=== PATIENT | male | born 1965 | race Caucasian/White ===

== ENCOUNTER 2016-08-27 13:38 | Inpatient (IN) | payer OTHER, SELFPAY ==
--- NOTE | ~2016-08-27 | CN ---
Consultation Report [place] [id number] [facility] [place]. [address] NAME: AKILAH BHATT : 61 STATUS : ADM IN PAT#: [id number] AGE: 51 ADM/REG DATE : 08/27/16 MR#: [id number] REPORT SERV DATE: 09/09/16 DICTATED BY: NILA PANDA DATE: 09/08/16 REPORT STATUS : Draft TRANSCRIBED BY: MODL DATE: 09/08/16 CONSULTATION DATE OF CONSULTATION: CONSULTATION REASON: Diabetic management. HISTORY OF PRESENT ILLNESS: This is a 51-year-old, male patient, who came to the hospital with short of breath and chest pain, was found to have multivessel disease and had gone through the cardiac bypass surgery urgently with Dr. Youngbolod on 09/06/2016. He had a cardiac bypass x5 with Dr. Youngblood and now the patient is transferred out of [facility]. Hospitalist Service was called for diabetic management. The patient has not been diagnosed with diabetes before in this hospitalization. However, his blood sugar has been elevated, was managed with standard sliding scale order. His A1c was found to be 6.3. He never been changed his diet or he never been recommended any lifestyle modification prior to this time. REVIEW OF SYSTEMS: He is having chest soreness from the operation site; however, there is no fever or chills. No diarrhea. No abdominal pain. Tolerating diabetic diet very well. All systems are reviewed and negative. PAST MEDICAL HISTORY: 1. Hypertension. 2. Morbid obesity. 3. Sleep apnea. The patient is using CPAP compliantly. 4. Kidney stones. 5. Hyperlipidemia. 6. Bilateral adrenal masses. 7. History of meningitis. 8. Depression. PAST SURGICAL HISTORY: 1. Left lower extremity split-thickness skin graft. 2. Left calf basal cell carcinoma resection. ALLERGIES: CODEINE. MEDICATION AT HOME: Prior to this admission, 1. Clonidine 0.1 mg every eight hours as needed. 2. Hydrochlorothiazide 25 mg once a day. 3. Prinivil 40 mg once a day. SOCIAL HISTORY: 1. He smoked two-pack a day up until this admission, which is consistent with 25 years. Consultation Report [place] [id number] [facility] [place]. [address] NAME: AKILAH BHATT : 61 STATUS : ADM IN PAT#: [id number] AGE: 51 ADM/REG DATE : 08/27/16 MR#: [id number] REPORT SERV DATE: 09/09/16 DICTATED BY: NILA PANDA DATE: 09/08/16 REPORT STATUS : Draft TRANSCRIBED BY: JIMENEZ DATE: 09/08/16 2. He seldomly drinks bourbon containing beverage. FAMILY HISTORY: Has a coronary artery disease positive and stroke and diabetes positive. PHYSICAL EXAMINATION: VITAL SIGNS: Blood pressure is 163/76, pulse is 75, temperature is 98.3, respiratory rate is 19, saturation 93% on 4 L of oxygen. GENERAL APPEARANCE: He is alert, awake. He is obese. HEENT: Pupils are equal, round, and reactive to light. Conjunctivae not anemic. LUNGS: Has a very shallow breath and a very decreased left base. CARDIOVASCULAR: Regular rhythm and rate. I do not hear the murmurs, rubs, and gallops. ABDOMEN: Bowel sounds present. No organomegaly appreciated. EXTREMITIES: No pitting edema. LABORATORY DATA: Showed sodium of 141, potassium 5.5, chloride 106, bicarb 19.8, BUN 29, creatinine 1.49. WBC 26.1, hemoglobin 14, platelet 161. ASSESSMENT/PLAN: 1. Status post coronary artery bypass graft postop day #2. 2. Presented to the hospital with a non-ST elevation myocardial infarction with heart failure symptoms. 3. Diabetes mellitus. A1c was 6.3. This is new diagnosis. We are going to obtain a diabetic education nurse and we are going to try to very restrict lifestyle modification. 4. Chronic kidney disease. 5. Hypertension. 6. Tobacco abuse. 7. We will transition to subcutaneous insulin today and we are going to get the diabetic education and lifestyle modification will be started. Had a long discussion regarding prognosis and nature of the disease and he voiced understanding. EKL/MODL Nila Panda M.D. / [id number]
--- NOTE | ~2016-08-27 | CN ---
Consultation Report [facility] [address] [place]. [address] NAME: AKILAH BHATT : 61 STATUS : ADM IN PAT#: [id number] AGE: 51 ADM/REG DATE : 08/27/16 MR#: [id number] REPORT SERV DATE: 08/30/16 DICTATED BY: SILVANO ENCARNACION DATE: 08/30/16 REPORT STATUS : Draft TRANSCRIBED BY: MODL DATE: 08/30/16 CONSULTATION NOTE DATE OF CONSULTATION: 08/30/2016 REASON FOR CONSULTATION: Three-vessel flow-limiting coronary artery disease in the context of recent non-ST elevation myocardial infarction, consideration for urgent coronary artery bypass grafting. CHIEF COMPLAINT: "I woke up and could not get my breath Monday morning." HISTORY OF PRESENT ILLNESS: This is a 51-year-old morbidly obese gentleman, who is a smoker of up to two packs per day for the last 25 years. He has obstructive sleep apnea and uses CPAP. He reports that over the past year or longer he has had exertional chest pain and pressure that resolves with rest. 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 He reports that early Monday morning he awakened feeling unable to get his breath. He went to the emergency department at [facility], and there had abnormal EKG, elevated troponin I, and elevated B type natriuretic peptide. Chest x-ray was remarkable for pulmonary edema. He was transferred to [facility] where he was hospitalized under the care of Dr. Becerril. His cardiac workup culminated in coronary arteriogram today that demonstrated severe three- vessel flow-limiting coronary artery disease. Echocardiography during this admission showed normal left ventricular function with ejection fraction 55%, and no significant valvulopathy, although he does have aortic sclerosis. We were asked to see for possible coronary artery bypass grafting. This was discussed with the patient and his family today. PRIOR MEDICAL HISTORY: 1. Significant for obstructive sleep apnea, wearing CPAP. 2. Hypertension. 3. Hyperlipidemia. 4. COPD. 5. Tobacco abuse. 6. Nephrolithiasis. 7. Basal cell carcinoma of the left lower extremity with resection. PRIOR SURGICAL HISTORY: Significant for extraction of renal stones, excision of left lower extremity basal cell carcinoma, and left lower extremity split-thickness skin graft. ALLERGIES: CODEINE, WHICH CAUSES HIM TO HAVE PRURITUS. MEDICATIONS AT HOME: Include clonidine 0.1 mg p.o. q.8 hours p.r.n., hydrochlorothiazide 25 mg p.o. daily, lisinopril 40 mg p.o. daily, and upon admission, he was placed on Plavix 75 mg p.o. daily, last dose this morning. Consultation Report [facility] [address] [place]. [address] NAME: AKILAH BHATT : 61 STATUS : ADM IN PAT#: [id number] AGE: 51 ADM/REG DATE : 08/27/16 MR#: [id number] REPORT SERV DATE: 08/30/16 DICTATED BY: SILVANO ENCARNACION DATE: 08/30/16 REPORT STATUS : Draft TRANSCRIBED BY: JIMENEZ DATE: 08/30/16 FAMILY HISTORY: Significant for mother and father both with coronary disease and coronary artery bypass grafting, other family history includes hypertension, stroke, diabetes, cancer, arthritis, and depression. SOCIAL HISTORY: He is a smoker of up to two packs per day for 25 years, and drinks Dillon on a weekly basis. 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 REVIEW OF SYSTEMS: GENERAL: Negative for any recent weight change, fevers, chills, night sweats, or malaise. ENT: Positive for poor dentition and broken teeth. Wears glasses. Denies any cataracts or glaucoma. Denies any difficulty with hearing. RESPIRATORY: Positive for shortness of breath, PAIGE, use of CPAP, prior bronchitis, and prior mechanical ventilation two years ago with his stone extraction. CV: Positive for chest pain, shortness of breath, nocturnal chest pain, and pain at rest. Negative for paroxysmal nocturnal dyspnea other than the recent episode. Negative for syncope or near syncope. Negative for orthopnea. Negative for diaphoresis, nausea, or vomiting. GI: Positive for reflux and hiatal hernia. : Positive for the kidney stones. MUSCULOSKELETAL: Negative. HEME/ONC: Negative for free bleeding or easy bruising. Negative for blood clots. Positive for prior basal cell carcinoma of the leg, status post excision with split-thickness skin graft in March of last year. ENDOCRINE: Negative for diabetes or thyroid problems. PHYSICAL EXAMINATION: GENERAL: He is a pleasant, obese white male, in no acute distress, although he appears mildly short of breath at rest on 4 liters nasal cannula. His height is 182.88 cm and weight 144.49 kg giving him BMI of 43.2 kg/m2, which is class 3 obesity. VITAL SIGNS: Blood pressure 137/86; temperature 98.9; pulse of 64; and respirations 16, regular and unlabored. HEENT: Normocephalic and atraumatic. Pupils are equal, round, reactive to light and accommodation. Sclerae are clear. Conjunctivae are pink. Oral and buccal mucosa are pink and moist. No lesions or masses, with multiple broken teeth at the gumline. Mallampati class IV airway. NECK: Supple. No restricted range of motion. No carotid bruits. No jugular venous distention. CHEST: He has few scattered expiratory wheezes. No use of accessory muscles. No chest wall tenderness. No deformity. BREASTS: Not examined. CV: Regular rate and rhythm with aortic systolic murmur. He has palpable and symmetric central and peripheral pulses. No clubbing. No cyanosis. No edema. ABDOMEN: Large, obese, nontender with normoactive bowel sounds. No hepatosplenomegaly. /RECTAL: Declined. Consultation Report [address] [place]. [address] NAME: AKILAH BHATT : 61 STATUS : ADM IN [facility]#: [id number] AGE: 51 ADM/REG DATE : 08/27/16 MR#: [id number] REPORT SERV DATE: 08/30/16 DICTATED BY: SILVANO ENCARNACION DATE: 08/30/16 REPORT STATUS : Draft TRANSCRIBED BY: JIMENEZ DATE: 08/30/16 MUSCULOSKELETAL: No kyphoscoliosis. No asymmetry. NEUROLOGIC: He is alert and oriented. Speech is clear and fluent. No focal neural neurologic deficits. SKIN, HAIR, AND NAILS: He has coarse graying hair and a sanchez, has an approximately 1 cm warty excrescence in the left foot plantar surface. His lower extremity nails are thickened. DATA: His coronary arteriogram, which I reviewed today showing severe three-vessel flow- limiting disease. His EKG shows normal sinus rhythm with incomplete right bundle-branch block and ST-T wave abnormality. LABORATORY DATA: His electrolyte profile; sodium 146, potassium 3.3, chloride 110, CO2 of 25, BUN 8, creatinine 1.19, and nonfasting glucose is 168. His lipid profile; cholesterol is 166, HDL is 50, LDL is 92, and triglycerides 121. His CBC shows WBCs 11.6, hemoglobin 15.2 g, hematocrit 45%, and platelets 171,000. ABGs show pH 7.41, PaCO2 of 41, PaO2 of 69, and bicarb 25.4. Chest x-ray shows increased interstitial markings consistent with edema. IMPRESSION: 1. Three-vessel flow-limiting coronary artery disease. 2. Recent non-ST elevation myocardial infarction. 3. Morbid obesity. 4. Obstructive sleep apnea. 5. Pulmonary edema. 6. Hypertension. 7. Hyperlipidemia. 8. Chronic obstructive pulmonary disease. 9. Tobacco abuse. 10.Recent clopidogrel use. PLAN: We discussed with the patient and his family today possible coronary artery bypass grafting, indications, benefits, and risks. Serious risks include but are not limited to, things such as bleeding, need for blood or blood product transfusion and their attendant risks, damage to the kidneys including kidney failure and dialysis, damage to the liver or the lungs, infection including deep sternal infection, mediastinitis, heart attack, stroke, abnormal heart rhythm, and even . Using Society of Thor[employer] Surgeons database for risk prediction, risk of was calculated at 2.055%, morbidity or mortality 24.979% for coronary artery bypass grafting. This was shared with the patient and his family today. He indicates his understanding and wishes to proceed. Given his recent acute heart failure, he will benefit from continued "tuning" of his pulmonary system and he is currently being seen by Pulmonology and is on steroids. Given his recent use of Plavix, will require time for platelet recovery. In the interim, we will obtain carotid ultrasound as well as bedside spirometry. We will discuss with Pulmonology, would anticipate coronary artery bypass grafting possibly earlier next week. Consultation Report [place] [id number] [facility] [place]. [address] NAME: AKILAH BHATT : 61 STATUS : ADM IN PAT#: [id number] AGE: 51 ADM/REG DATE : 08/27/16 MR#: [id number] REPORT SERV DATE: 08/30/16 DICTATED BY: SILVANO ENCARNACION DATE: 08/30/16 REPORT STATUS : Draft TRANSCRIBED BY: JIMENEZ DATE: 08/30/16 We appreciate the opportunity to participate in this gentleman's care. MSL/MODL Silvano Encarnacion N.P. / [id number] CC: Michael Becerril III, M.D., [facility], [facility]
--- NOTE | ~2016-08-27 | OP ---
Record Of [place] [id number] [place]. [address] NAME: AKILAH BHATT : 61 STATUS : ADM IN PAT#: [id number] AGE: 51 ADM/REG DATE : 08/27/16 MR#: [id number] REPORT SERV DATE: 09/07/16 DICTATED BY: EH YOUNGBLOOD DATE: 09/06/16 REPORT STATUS : Draft TRANSCRIBED BY: MODL DATE: 09/06/16 DATE OF PROCEDURE: 09/06/2016 PREOPERATIVE DIAGNOSES: 1. Coronary artery disease with unstable angina. 2. Non-ST elevation myocardial infarction. 3. Morbid obesity (body mass index greater than 40). 4. Hypertension. 5. Hyperlipidemia. 6. Obstructive sleep apnea. 7. Depression. 8. Tobacco abuse. POSTOPERATIVE DIAGNOSES: 1. Coronary artery disease with unstable angina. 2. Non-ST elevation myocardial infarction. 3. Morbid obesity (body mass index greater than 40). 4. Hypertension. 5. Hyperlipidemia. 6. Obstructive sleep apnea. 7. Depression. 8. Tobacco abuse. PROCEDURES PERFORMED: 1. Urgent coronary artery bypass grafting x5, left internal mammary artery placed to left anterior descending, reverse saphenous vein graft placed to the diagonal #2, reverse saphenous vein graft placed to the second obtuse marginal. Reverse saphenous vein graft sequenced to the distal right coronary artery and posterior descending artery. 2. Endoscopic vein harvest of the saphenous vein from the right leg and left lower leg. 3. Transesophageal echocardiography. SURGEON: Eh Youngblood M.D. ASSISTANTS: Nathan Mcnally, Italo Azul, and Linsey James. ANESTHESIA: General with Dr. Victor. AWAKE OVERNIGHT COUNSELOR: Michael Becerril M.D., [facility], [facility] INDICATIONS: This is a 51-year-old male smoker with hypertension who was transferred from [facility] for evaluation of acute non-ST elevation MO. He has a history of obstructive sleep apnea with chest pain. He was admitted, medically stabilized, and underwent a cardiac catheterization demonstrating significant three-vessel coronary artery disease. We were asked to see the patient for possible urgent revascularization. On evaluation either at the outlying hospital or admission here, the patient was given a loading dose of Plavix. Because the patient was stable after cardiac catheterization Record Of [place] [address] [place]. [address] NAME: AKILAH BHATT : 61 STATUS : ADM IN PAT#: [id number] AGE: 51 ADM/REG DATE : 08/27/16 MR#: [id number] REPORT SERV DATE: 09/07/16 DICTATED BY: EH YOUNGBLOOD DATE: 09/06/16 REPORT STATUS : Draft TRANSCRIBED BY: MODL DATE: 09/06/16 without having chest pain, it was elected to defer coronary bypass grafting to after metabolism of the Plavix and new platelets. We discussed possible coronary artery bypass grafting with the patient and after lengthy discussion of the operation, its indications and risks, he and his family wished to proceed. STS predicted mortality of 2%, morbidity mortality of 25%. These were shared with the family. FINDINGS AT OPERATION: 1. Cross-clamp time of 84 minutes, total pump time of 96 minutes. 2. The LAD was a 2 mm heavily diseased vessel. A 3 mm GUPTA was anastomosed to it with good runoff. 3. The second diagonal was 2 mm and heavily diseased. A 4 mm RSVG was anastomosed to it with good runoff. Unfortunately, this vein graft was not long enough to reach the ascending aorta. Therefore, it was piggybacked into the side of vein graft going to the obtuse marginal vessel. 4. The second obtuse marginal vessel was 2 mm and heavily diseased. A 4 mm RSVG was anastomosed to it with good runoff. 5. The distal right coronary artery is 2.5 mm and heavily diseased. A 4 mm RSVG was anastomosed to it in a [id number]-np-yrdi fashion with good runoff. 6. The posterior descending artery was 2 mm and heavily diseased. The same 4 mm RSVG was anastomosed to it into fbvt-[id number]-[id number] fashion with good runoff. 7. The vein quality from the lower legs was good. Unfortunately, the right thigh saphenous vein was sclerotic and not usable as graft material. All grafts did have good Doppler signal at the end of the case. 8. Transesophageal echocardiography demonstrated good ventricular function. There was mild mitral insufficiency and mild aortic insufficiency. PATHOLOGIC SPECIMENS: None. DESCRIPTION OF PROCEDURE: The patient was brought to the operating suite where general anesthesia was induced and airway secured with an endotracheal tube. Lines were secured by Anesthesia and Hollis catheter was placed. The patient's chest, abdomen, groin, and legs were prepped with Hibiclens and ChloraPrep and draped with Ioban sterile sheets. ADRIEN probe was placed by Dr. Victor and examination carried out in my attendance. The saphenous vein was harvested from the right leg in its entirety and the left lower leg below the knee. First incision was made at the medial aspect of the right knee, measured 2 cm. This was carried through subcutaneous tissue and saphenous vein was identified. The side branches were identified, ligated, and divided with cautery. Once adequate length of vein had been dissected, a counter incision was made up in the groin and in the lower leg. The vein quality from the vessel below the level of the knee was good. Unfortunately in the thigh, the vein became sclerotic and was not usable for graft material. Therefore, a similar cut down was made in the left greater saphenous vein in the left knee and this dissection was carried distally using endoscopic technique. A counter incision was made in the lower leg and this vein was ligated and brought out through the knee incision. The vein quality from the left leg was good. The leg wounds were then made hemostatic and closed in layers with absorbable suture and skin closed subcuticular fashion. Record Of Operation [facility] [address] [facility] [place]. [address] NAME: AKILAH BHATT : 61 STATUS : ADM IN [facility]#: [id number] AGE: 51 ADM/REG DATE : 08/27/16 MR#: [id number] REPORT SERV DATE: 09/07/16 DICTATED BY: EH YOUNGBLOOD DATE: 09/06/16 REPORT STATUS : Draft TRANSCRIBED BY: MODLillian DATE: 09/06/16 Then, a midline sternal incision was made and the sternum opened with a saw. The left hemithorax was elevated. The endothoracic fascia was incised. The side branches of the ALEX were clipped and divided. Once the ALEX was completely dissected, the patient was anticoagulated with heparin and chest tube placed in the left pleural cavity. The ALEX was clipped and divided distally. There was good flow through the ALEX and its pedicle was infiltrated with papaverine. Then, the Mark retractor was placed in the pericardium over the innominate vein and diaphragm where it was T'd and tacked to the side of the chest wall. Cannulation pursestring sutures were placed and cannulation was carried out in a routine manner. A retrograde cardioplegia cannula was placed in the coronary sinus. When all was in readiness, the patient was placed on cardiopulmonary bypass. The distal targets were marked out on the heart as described in the findings. This patient had a very large heart. Then, a heart support was placed. The aorta was crossclamped and an initial dose of cold blood cardioplegia solution was given in a combination of antegrade and retrograde fashion, and then in a retrograde manner following proximal anastomoses. Following the first dose of cardioplegia, the heart was positioned for the diagonal graft. Arteriotomy was made and the vein graft was trimmed and anastomosed to it with 7-0 Prolene. Unfortunately, the segment of vein graft was not long enough to reach the ascending aorta. We then positioned the heart for the posterior descending artery graft. Arteriotomy was made and the vein graft was trimmed and anastomosed it with 7-0 Prolene. The vein graft was measured back to the distal right coronary artery where a second arteriotomy was made. The vein was opened correspondingly and anastomosed to the distal RCA with a running suture of 7 0 Prolene in a vzmb-dc-rjwi fashion. The vein graft was then measured to the ascending aorta where the sequential vein graft was anastomosed to a 5 mm punch aortotomy with 6-0 Prolene. Another dose of cardioplegia was given. We then positioned the heart for the obtuse marginal graft. Another arteriotomy was made and the vein graft was trimmed and anastomosed to it with 7-0 Prolene. The vein graft was measured to the left side of the ascending aorta where it was divided and anastomosed to a 5 mm punch aortotomy with 6-0 Prolene. Then, the proximal end of the diagonal vein graft was anastomosed to the side of the vein graft going to the obtuse marginal vessel. Venotomy was made and an end-to-side venovenous anastomosis was constructed with 7-0 Prolene. Another dose of cardioplegia was given and warming was begun. We then positioned the heart for the LAD graft. Arteriotomy was made in the mid LAD. The ALEX was brought out the left chest through a notch in the pericardium over the pulmonary artery. The ALEX was opened and anastomosed to the LAD with running suture of 8-0 Prolene. The endothoracic fascia was tacked to the epicardium. The patient was placed in Trendelenburg and final dose of warm blood cardioplegia was given in a retrograde fashion. Ventricular and atrial pacing wires were placed. Following the last dose of cardioplegia and de-airing the aorta, the aortic cross clamp was removed where the distal and proximal anastomoses were inspected and made hemostatic. Doppler demonstrated good flow through the grafts. Ventilation was begun. The heart was paced in AV sequential fashion and later this was changed to atrial pacing only at a rate of Record Of Operation [facility] [address] [place]. [address] NAME: AKILAH BHATT : 61 STATUS : ADM IN PAT#: [id number] AGE: 51 ADM/REG DATE : 08/27/16 MR#: [id number] REPORT SERV DATE: 09/07/16 DICTATED BY: EH YOUNGBLOOD DATE: 09/06/16 REPORT STATUS : Draft TRANSCRIBED BY: JIMENEZ DATE: 09/06/16 80. When deairing was completed, the heart was allowed to fill and eject. The patient was taken out of Trendelenburg. The ascending aortic vent was removed and these pursestring sutures tied and reinforced. The patient was weaned from cardiopulmonary bypass with minimal inotropic support. The venous cannula was removed and these pursestring sutures tied. ADRIEN examination demonstrated continued mild mitral valve insufficiency and mild aortic insufficiency. Protamine was administered by Anesthesia, and following a period of hemodynamic stability, the aortic cannula was removed and these pursestring sutures tied and reinforced. The patient continued to do well and chest irrigated copiously with saline. Meticulous hemostasis was obtained. Hemasorb was placed along the cut edge of the sternum. Once hemostasis was assured, the pericardium was draped over the anterior surface of the heart and tacked into position. Doppler demonstrated good flow through the grafts following protamine administration. Then, chest tubes were placed and sternum reapproximated with eight sternal wires. The clavipectoral fascia and linea alba closed with #1 Stratafix. The subcutaneous tissue was closed and skin closed in subcuticular fashion. The patient tolerated the procedure well. There were no complications. Sponge and needle counts were correct. DISPOSITION: The patient was left intubated, sedated, and transported to the intensive care unit in stable condition. JANEEN/JIMENEZ Eh Youngblood M.D. / [id number] CC: Michael Becerril III, M.D., [facility], [facility]
--- NOTE | ~2016-08-27 | DS ---
Discharge Summary [facility] [address] [place]. [address] NAME: AKILAH BHATT : 61 STATUS : DIS IN PAT#: [id number] AGE: 51 ADM/REG DATE : 08/27/16 MR#: [id number] REPORT SERV DATE: 09/22/16 DICTATED BY: JAY BECERRIL III DATE: 09/21/16 REPORT STATUS : Draft TRANSCRIBED BY: JIMENEZ DATE: 09/21/16 Data Collection from hospitalization DISCHARGE DIAGNOSES: 1. Unstable angina pectoris - acute coronary syndrome. 2. Three-vessel coronary artery disease. 3. Acute diastolic heart failure. 4. Chronic obstructive pulmonary disease. 5. Hypertension. 6. Hyperlipidemia. 7. Morbid obesity. 8. Acute nyv-YH-exfnalzgk myocardial infarction. 9. Hyperlipoproteinemia. 10.Obstructive sleep apnea. 11.Chronic obstructive pulmonary disease. 12.Nephrolithiasis. 13.Bilateral adrenal masses. 14.History of meningitis. 15.Depression. 16.Tobacco use. CONSULTATIONS: 1. Nkechi Salmon MD. 2. Silvano Gross N.P. 3. Laura Chatterjee M.D. PROCEDURES PERFORMED: 1. Cardiac catheterization on 08/30/2016. 2. Urgent coronary artery bypass grafting x5 with left internal mammary artery to the left anterior descending artery, reverse saphenous vein graft placed to the diagonal #2, reverse saphenous vein graft placed to the second obtuse marginal, reverse saphenous vein graft sequenced to the distal right coronary artery and posterior descending artery; endoscopic vein harvest of the saphenous vein from the right leg and left lower leg; and transesophageal echocardiography on 09/06/2016. 3. Carotid blood flow study on 08/31/2016. 4. Vein mapping of the bilateral lower extremities on 08/31/2016. 5. CTA of the chest on 09/01/2016. 6. Pulmonary function study on 09/03/2016. MEDICATIONS: Aspirin 81 mg daily, Lipitor 40 mg at bedtime, Bumex 1 mg daily, Plavix 75 mg daily, Neurontin 300 mg three times a day, Prinivil 10 mg daily, Toprol-XL 100 mg daily, Dulera two puffs via inhaler twice a day, Habitrol 21 mg topically daily, Nitrostat 0.4 mg sublingually as needed, Percocet one tablet every four hours as needed, and K-Dur 20 mEq daily. CONDITION AT DISCHARGE: Stable. DISPOSITION: The patient was discharged home on a low-sodium, low-cholesterol, cardiac diet Discharge Summary [place] [address] [facility] [place]. [address] NAME: AKILAH BHATT : 61 STATUS : DIS IN PAT#: [id number] AGE: 51 ADM/REG DATE : 08/27/16 MR#: [id number] REPORT SERV DATE: 09/22/16 DICTATED BY: JAY BECERRIL III DATE: 09/21/16 REPORT STATUS : Draft TRANSCRIBED BY: JIMENEZ DATE: 09/21/16 with activities as instructed. He would follow up with Dr. Nkechi Salmon one to two months following discharge. He would follow up with Silvano Gross on 11/10/2016. He would follow up with Dr. Jay Becerril on 10/12/2016. HOSPITAL COURSE: This is a 51-year-old man who was transferred from [facility] for evaluation and treatment of acute kao-OV-zelwujmzp myocardial infarction and congestive heart failure. The patient has a history of chronic obstructive pulmonary disease and obstructive sleep apnea. He had been in his usual state of health until approximately two years prior to this admission when he had the onset of dull substernal chest pain radiating to the shoulders. Chest pain had lasted a few hours in duration. Chest pains were accompanied by dyspnea and diaphoresis. The patient denied any nausea or vomiting. Chest pain had been precipitated by exertion and emotional upset, that had been relieved with rest and wearing oxygen. About six months prior to this admission, the patient noticed an increase in the frequency and intensity of his chest pain. He denied any change in the duration of his chest pain. The patient did well until the day of admission. At that time, he had developed the acute onset of dyspnea. He was subsequently seen in the [facility] Emergency Room. His blood pressure was 172/97. A 12-lead electrocardiogram demonstrated sinus rhythm with left ventricular hypertrophy accompanied by repolarization abnormalities. Potassium was 3.7. Troponin I level was 0.07. BNP was 99.8. Chest x-ray showed cardiomegaly and increased pulmonary vascular markings. A CTA of the chest demonstrated no evidence of pulmonary embolus. There were findings suggestive of pulmonary vascular congestion. He was treated with aspirin and heparin followed by an infusion. He also had nitroglycerin paste and furosemide given. He was transferred here and admitted for further evaluation and treatment. Upon admission, the patient was felt to have unstable angina pectoris - acute coronary syndrome complicated by congestive heart failure and nonspecific systolic murmur. The following day, he had no chest pain. His dyspnea had improved. He had no palpitations. He was in a sinus rhythm. He had trace pedal edema. On 08/29/2016, he had some dyspnea. He had no chest pain or palpitations. He was in a sinus rhythm. It was felt that he would need to undergo cardiac catheterization and possible percutaneous coronary intervention. 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 He tolerated this well, and there were no complications. He had been by Dr. Salmon regarding his shortness of breath. The patient does have cigarette-nicotine dependence. He was felt to have an acute exacerbation of his chronic obstructive pulmonary disease. The patient was encouraged to stop smoking. Dulera was going to be started. We would also begin DuoNeb therapy and prednisone. The patient was seen postoperatively by Silvano Gross. Cardiac workup had resulted in a coronary arteriogram that demonstrated severe three-vessel flow-limiting coronary artery disease. Echocardiography during this admission showed normal left ventricular function with ejection fraction 55% and no significant valvulopathy, although he does have aortic sclerosis. It was felt that he would need to undergo coronary artery bypass grafting. Given his use of recent Plavix, he would require time for platelet recovery. In the interim, we would obtain a carotid ultrasound as well as bedside spirometry. On 08/31/2016, a carotid blood flow study was performed as well as vein mapping of the bilateral lower extremities. He seemed to be doing well. DuoNebs were continued. He was encouraged to use CPAP. He was in a sinus rhythm. His carotid ultrasound showed no significant disease. The next day, there have been no issues Discharge Summary [address] [place]. [address] NAME: AKILAH BHATT : 61 STATUS : DIS IN PAT#: [id number] AGE: 51 ADM/REG DATE : 08/27/16 MR#: [id number] REPORT SERV DATE: 09/22/16 DICTATED BY: JAY BECERRIL III DATE: 09/21/16 REPORT STATUS : Draft TRANSCRIBED BY: JIMENEZ DATE: 09/21/16 overnight. A CTA of the chest was performed. His dyspnea was much improved. He had no chest pain or palpitations. He was in a sinus rhythm. Bumetanide was decreased. KCl was continued. On 09/02/2016, the CTA had shown mild interstitial pulmonary edema and bilateral adrenal adenomas. Aldosterone level was going to be checked. The patient complained of mouth/tongue white plaque. Plans were being made to proceed with surgical intervention. Pulmonary function studies were performed. He remained in a sinus rhythm. He has had some myoclonus and this improved. Bumetanide and KCl were stopped. He denied chest pain. On 09/06/2016, he was taken to the operating room where he underwent the above-mentioned procedure. He tolerated this well, and there were no complications. On postop day #1, he complained of some incisional pain. We encouraged him to use pulmonary toilet. He had been extubated. He did have chest soreness. He had no palpitations or dyspnea. Metoprolol was increased. The next day, he began to ambulate in the halls. Chest tubes were removed. His incisions looked okay. We encouraged him to perform deep cough and incentive spirometry. He was encouraged to ambulate. He was seen by Dr. Laura Chatterjee regarding diabetes management. The patient had not been diagnosed with diabetes before this hospitalization. His hemoglobin level was found to be 6.3. His blood sugars had been elevated. He had been managed with standard sliding scale. He had smoked two packs a day up until this admission. It was felt that he had a new diagnosis of diabetes mellitus. He was going to undergo diabetes education. Lifestyle modifications were discussed. He would be transitioned to subcutaneous insulin later in the day. The next day, he had some chest soreness. There was no palpitations or dyspnea. He remained in a sinus rhythm. Lisinopril was being given. Discharge planning was performed. He underwent diabetes education. On 09/10/2016, he continued to do well. O2 saturation ranged between 94% and 96% on room air. Discharge instructions were given. Due to his improved and stable condition, he was discharged home with the above-stated instructions. Information collected by: Kanika Cosme I submit the above information as my discharge summary. DILMA/JIMENEZ Jay Becerril III, M.D., [facility], [facility] / [id number] CC: Jay Becerril III, M.D., [facility], [facility] Silvano Gross N.P.
--- NOTE | ~2016-08-27 | PUL ---
[place] [id number] [place]. [address] NAME: AKILAH BHATT : 61 STATUS : ADM IN PAT#: [id number] AGE: 51 ADM/REG DATE : 08/27/16 MR#: [id number] REPORT SERV DATE: 09/04/16 DICTATED BY: MERY HAIR DATE: 09/03/16 REPORT STATUS : Draft TRANSCRIBED BY: MODL DATE: 09/03/16 PULMONARY FUNCTION TEST RESULTS: 1. FEV1 of 3.41 L or 83% predicted. 2. Forced vital capacity of 3.73 L or 70% predicted. 3. FEV1/FVC of 91%. INTERPRETATION: 1. Normal airflow. 2. Decreased forced vital capacity may indicate neuromuscular weakness, poor effort, or restriction. Consider lung volume testing if clinically indicated. LORETO/JIMENEZ Mery Hair M.D. / [id number] CC: Michael Becerril III, M.D., [facility], [facility]
--- NOTE | ~2016-08-27 | HP ---
History And Physical [place] [id number] [facility] [place]. [address] NAME: AKILAH BHATT : 61 STATUS : ADM IN PAT#: [id number] AGE: 51 ADM/REG DATE : 08/27/16 MR#: [id number] REPORT SERV DATE: 08/27/16 DICTATED BY: JAY CAZARES III DATE: 08/27/16 REPORT STATUS : Draft TRANSCRIBED BY: JIMENEZ DATE: 08/27/16 DATE OF ADMISSION: 08/27/2016 HISTORY OF PRESENT ILLNESS: Mr. Akilah Bhatt is a 51-year-old white male, transferred from [facility] for evaluation and treatment of an acute dju-BI-hvfalzp elevation myocardial infarction and congestive heart failure. The patient has a history of chronic obstructive pulmonary disease and obstructive sleep apnea. The patient had been in his usual state of health until approximately two years prior to this admission. At that time, the patient had the onset of dull substernal chest pains radiating to his shoulders. The patient's chest pains have lasted up to two hours in duration. The patient's chest pains have been accompanied by dyspnea and diaphoresis. The patient denied any associated nausea or vomiting. The patient's chest pains have been precipitated by exertion and emotional upset. The patient denied relation to oral intake, positional change, and inspiration. The patient's chest pains have been relieved by rest and wearing oxygen. The patient denied relief with antacids. The patient denied trying sublingual nitroglycerin or heating pad. The patient has no history of migraine headaches or symptoms suggestive of Raynaud's phenomenon. The patient has occasionally noted chest pain at rest. The patient has been woken from sleep by chest pain. Approximately six months prior to this admission, the patient noted an increase in the frequency and intensity of his chest pains. The patient denied any change in the duration of his chest pain. The patient did well until the day of admission. At that time, the patient noted the acute onset of dyspnea. The patient was subsequently seen in the [facility]. The patient's blood pressure was 172/97 mmHg. A 12-lead electrocardiogram demonstrated sinus rhythm with left ventricular hypertrophy accompanied by repolarization abnormalities. The patient's potassium was 3.0, troponin I level was 0.07, and B-type natriuretic peptide level was 99.8 pg/mL. A chest radiograph demonstrated cardiomegaly and increased pulmonary vascular markings. A CTA of the chest demonstrated no evidence of a pulmonary embolus. There were findings suggestive of pulmonary vascular congestion. The patient was treated with aspirin 324 mg p.o., heparin 5000 units intravenously followed by an infusion, 2% Nitro paste, and furosemide 20 mg intravenously. The patient was subsequently transferred for further evaluation and therapy. The patient complained of dyspnea on exertion at less than 15 yards, bilateral pedal edema and occasional palpitations. The patient has been told that he has a cardiac murmur. The patient denied sacral edema, syncope, hip claudication, and lower extremity claudication. The patient has no history of rheumatic fever. The patient's documented coronary artery disease risk factors include family history, obesity, hyperlipoproteinemia, hypertension, and tobacco use. PAST MEDICAL HISTORY: 1. Morbid obesity. 2. Hyperlipoproteinemia. 3. Hypertension. 4. Obstructive sleep apnea, CPAP compliant. 5. Chronic obstructive pulmonary disease. 6. Nephrolithiasis with a right renal calculus. History And Physical [address] [address] NAME: AKILAH BHATT : 61 STATUS : ADM IN [facility]#: [id number] AGE: 51 ADM/REG DATE : 08/27/16 MR#: [id number] REPORT SERV DATE: 08/27/16 DICTATED BY: JAY CAZARES III DATE: 08/27/16 REPORT STATUS : Draft TRANSCRIBED BY: JIMENEZ DATE: 08/27/16 7. Bilateral adrenal masses. 8. History of meningitis. 9. Depression. OPERATIVE PROCEDURES: 1. Status post left lower extremity split thickness skin graft. 2. Status post resection of a left calf basal cell carcinoma. ALLERGIES: CODEINE. MEDICATIONS: 1. Clonidine 0.1 mg p.o. q.8 hours, p.r.n. (noncompliant). 2. Hydrochlorothiazide 25 mg p.o. daily (noncompliant). 3. Lisinopril 40 mg p.o. daily (noncompliant). FAMILY HISTORY: Positive for myocardial infarction, hypertension, stroke, diabetes mellitus, cancer, arthritis, and depression. Negative for seizures, kidney disease, liver disease, and anemia. SOCIAL HISTORY: The patient smokes approximately two packs per day and has done so for the last 25 years. The patient drinks a bourbon-containing beverage approximately one time per week. PHYSICAL EXAMINATION: GENERAL: Physical examination demonstrated an alert, morbidly obese, older white male, in mild respiratory distress. VITAL SIGNS: Demonstrated a temperature of 97.0, respiratory rate of 20 breaths per minute, and a blood pressure of 158/96 mmHg with a heart rate of 70 beats per minute. SKIN: Warm and dry. There was a healing left calf surgical incision. NECK: Supple and nontender. There was decreased range of motion. There was no appreciable lymphadenopathy or thyromegaly. There was no jugular venous distention at 90 degrees. There were no carotid bruits. BACK: Examination of the back demonstrated no spinal or costovertebral angle tenderness. CHEST: Examination of the chest demonstrated that it was clear to auscultation. There were no crackles, rhonchi, wheezes, or pleural rubs. There was symmetrical expansion of the chest. There was no use of accessary muscles for respiration. CARDIAC: Demonstrated a nonpalpable apical impulse. There was a regular rhythm and rate with a grade III/ holosystolic murmur heard at the right upper sternal border, left sternal border, and apex. There was no appreciable inspiratory augmentation of the systolic murmur. There was no increase in the intensity of the systolic murmur with Valsalva maneuver. There was no diastolic murmur, rub, gallop, or mid systolic click. There were no thrills or heaves. There was no hepatojugular reflux. ABDOMEN: Examination of the abdomen demonstrated that it was obese, soft, and markedly protuberant. There was no appreciable hepatosplenomegaly or masses. There was an umbilical hernia. Bowel sounds were intact. There were no appreciable abdominal or femoral bruits. EXTREMITIES: Examination of the extremities demonstrated that they were obese and symmetrical. There was decreased range of motion. There was 1+ right and 2+ pitting left History And Physical [address] [place]. [address] NAME: AKILAH BHATT : 61 STATUS : ADM IN [facility]#: [id number] AGE: 51 ADM/REG DATE : 08/27/16 MR#: [id number] REPORT SERV DATE: 08/27/16 DICTATED BY: JAY CAZARES III DATE: 08/27/16 REPORT STATUS : Draft TRANSCRIBED BY: MODLillian DATE: 08/27/16 pedal edema. There was no cyanosis or clubbing. Pulses were 2+ and equal at the radial, femoral, and dorsalis pedis arteries. The right posterior tibial pulse was 1+ and the left posterior tibial pulse was nonpalpable. ASSESSMENT: Mr. Akilah Bhatt is a 51-year-old white male with five other risk factors for coronary atherosclerotic disease (i.e. family history, morbid obesity, hyperlipoproteinemia, hypertension, tobacco use), chronic obstructive pulmonary disease and obstructive sleep apnea; who now presents with unstable angina pectoris progressing to an acute omu-UF-txyseir elevation myocardial infarction - acute coronary syndrome complicated by congestive heart failure and a nonspecific systolic murmur. The patient is admitted for further evaluation and therapy. /JIMENEZ Jay Cazares III, M.D., [place], [facility] [place] / [id number] CC: Jay Cazares III, M.D., [place] [facility]
--- NOTE | ~2016-08-27 | OP ---
Record Of Operation [facility] [address] [place]. [address] NAME: AKILAH THOMAS : 61 STATUS : DIS IN PAT#: [id number] AGE: 51 ADM/REG DATE : 08/27/16 MR#: [id number] REPORT SERV DATE: 09/12/16 DICTATED BY: JAY BECERRIL III DATE: 09/12/16 REPORT STATUS : Draft TRANSCRIBED BY: MODL DATE: 09/12/16 DATE OF PROCEDURE: 08/30/2016 REFERRING PHYSICIAN: None. PROCEDURAL DISTRICT BRANCH MANAGER: Jay Becerril M.D., [facility], [facility] INDICATION: Mr. Akilah Thomas is a 51-year-old white male with five other risk factors for coronary atherosclerotic disease (i.e. family history, morbid obesity, hyperlipoproteinemia, hypertension, tobacco use), chronic obstructive pulmonary disease, obstructive sleep apnea, and stage III chronic kidney disease, who presented with unstable angina pectoris, complicated by congestive heart failure, and a nonspecific systolic murmur. A 2D, contrast and Doppler echocardiogram demonstrated restrictive left ventricular diastolic dysfunction, apical hypokinesis, mild left atrial enlargement and aortic sclerosis. Global left ventricular systolic function was normal. The patient was referred for cardiac catheterization to define coronary anatomy and left ventricular function. Options, potential risks and benefits of the procedure were discussed with the patient. The patient accepted these risks and wished to proceed. PROCEDURES DESCRIPTION: 1. Left heart catheterization. 2. Left and right coronary angiograms. 3. Limited right iliofemoral angiogram. CONTRAST: Iopamidol 90 mL. MEDICATIONS: 1. Midazolam 2 mg intravenously, in divided doses. 2. Sublimaze 100 mcg intravenously, in divided doses. 3. Intravenous nicardipine beginning at 3 mg/hour and increase to 6 mg/hour. 4. Furosemide 80 mg intravenously. EQUIPMENT: 1. 4-Martiniquais Cook micropuncture with stiffened cannula (RFA). 2. 0.035 inch PTFE coated, 150 cm, 3 mm J 64 Pixels [place] guidewire. 3. 6-Martiniquais, 10 cm Terumo [place] sheath. 4. 6-Martiniquais, 100 cm #5 curve left coronary artery Akash catheter. 5. 6-Martiniquais, 100 cm Kamron 3D right coronary artery catheter. 6. 6-Martiniquais, 110 cm Pigtail-145 catheter. 7. 6-Martiniquais ComSense Technology Perclose ProGlide vascular closure device. COMPLICATIONS: None. RADIATION DOSE: 1122 mGy. ESTIMATED BLOOD LOSS: 10 mL. Record Of Operation [facility] [place]. [address] NAME: AKILAH THOMAS : 61 STATUS : DIS IN PAT#: [id number] AGE: 51 ADM/REG DATE : 08/27/16 MR#: [id number] REPORT SERV DATE: 09/12/16 DICTATED BY: JAY BECERRIL III DATE: 09/12/16 REPORT STATUS : Draft TRANSCRIBED BY: JIMENEZ DATE: 09/12/16 HEMODYNAMIC DATA: Following the injection of contrast, the central aortic pressure was 145/95 mmHg. The left ventricular pressure was 165/60 mmHg (post A-wave). There was no significant peak to peak aortic valve gradient on pullback from the left ventricle to the central aorta. ANGIOGRAPHIC DATA: The left main coronary artery was a large caliber, long, irregular vessel. The left main coronary artery bifurcated into a medium to large caliber left anterior descending and a large caliber, nondominant left circumflex coronary arteries. The left anterior descending coronary artery gave rise to three major septal perforators, small caliber first diagonal branch, small caliber second diagonal branch and a large caliber third diagonal branch, before supplying the left ventricular apex. The left anterior descending coronary artery was diffusely irregular. There was a radiolucent, irregular subtotal occlusion of the distal portion of the left anterior descending coronary artery, distal to the origin of the third major septal manager core, and third diagonal branch. There was JEM grade 2 perfusion of the distal vessel. The remainder of the left anterior descending coronary artery was free of angiographically significant obstructive epicardial coronary artery disease. The left circumflex coronary artery was a large caliber, nondominant vessel. The left circumflex coronary artery gave rise to a small caliber first obtuse marginal branch, medium to large caliber second obtuse marginal branch, large caliber third obtuse marginal branch and no posterolateral segment branches. The left circumflex coronary artery was diffusely irregular. There was a radiolucent, irregular 50% stenosis involving the proximal portion of the third obtuse marginal branch of the left circumflex coronary artery. The third obtuse marginal branch bifurcated in its proximal to mid portion into a medium caliber proximal branch and a small to medium caliber distal branch. There was a radiolucent, eccentric 90% stenosis involving the proximal portion of the distal branch of the third obtuse marginal branch of the left circumflex coronary artery. The remainder of the left circumflex coronary artery was free of angiographically significant obstructive epicardial coronary artery disease. The right coronary artery was a large caliber, dominant vessel. The right coronary artery gave rise to a conus branch, sinoatrial branch, medium to large caliber right ventricular branch, medium to large caliber acute marginal branch, large caliber posterior descending coronary artery, and one medium caliber posterior left ventricular branch. The right coronary artery was diffusely irregular. There was an eccentric, radiolucent, complex 90% stenosis involving the proximal portion of the right coronary artery, distal to the origin of the sinoatrial branch, and proximal to the origin of the right ventricular branch. There was an eccentric, radiolucent 90% stenosis involving the proximal portion of the posterior descending coronary artery. The remainder of the right coronary artery was free of angiographically significant obstructive epicardial coronary artery disease. Limited right iliofemoral angiography demonstrated tortuosity of the distal external iliac artery. There were irregularities of the common femoral and proximal portion of the superficial femoral arteries. The puncture site was located in the common femoral artery. Record Of Operation [address] [address] NAME: AKILAH THOMAS : 61 STATUS : DIS IN PAT#: [id number] AGE: 51 ADM/REG DATE : 08/27/16 MR#: [id number] REPORT SERV DATE: 09/12/16 DICTATED BY: JAY BECERRIL III DATE: 09/12/16 REPORT STATUS : Draft TRANSCRIBED BY: JIMENEZ DATE: 09/12/16 PATIENT DISPOSITION: Coronary Short Stay Unit. CONCLUSION: 1. Elevated left ventricular end-diastolic pressure. 2. Systemic hypertension. 3. Angiographically significant three-vessel coronary artery disease, involving the distal portion of the left anterior descending, third obtuse marginal branch left circumflex, and proximal portion of the right coronary arteries. 4. Right dominant coronary anatomy. RECOMMENDATION: Coronary artery bypass graft surgery, including a left internal mammary artery graft to the distal portion of the left anterior descending coronary artery. KELLY/JIMENEZ Jay Becerril III, M.D., [place] [facility] [place] [place] / [id number] CC: Jay Becerril III, M.D., [place] [facility]
--- NOTE | ~2016-08-27 | CN ---
Consultation Report [facility] [address] [place]. [address] NAME: AKILAH BHATT : 61 STATUS : ADM IN PAT#: [id number] AGE: 51 ADM/REG DATE : 08/27/16 MR#: [id number] REPORT SERV DATE: 08/28/16 DICTATED BY: NKECHI SALMON DATE: 08/28/16 REPORT STATUS : Draft TRANSCRIBED BY: MODL DATE: 08/28/16 DATE OF CONSULTATION: PULMONARY CONSULT CHIEF COMPLAINT: Shortness of breath. HISTORY OF PRESENT ILLNESS: Mr. Bhatt is a 51-year-old smoker who yesterday at 6 a.m. in the morning woke up with shortness of breath, this was the worst shortness of breath he has had, he had a panic attack and had to get the ambulance to bring him into the hospital. He was thought to have underlying acute coronary syndrome, his CT scan of the chest showed pulmonary edema most likely from a cardiogenic source. He was admitted to the hospital for acute coronary syndrome. However, his BNP was low. His EKG showed left ventricular hypertrophy and a CTA of the chest showed no pulmonary embolus, but pulmonary vascular congestion. The patient states he has underlying COPD and has noted that he is having more and more of the bronchitis pneumonia events. We discussed that these are acute exacerbation of COPD. The patient is smoking, states that at this moment in time with the amount of shortness of breath and the feeling of doom that he had yesterday, that he is going to go ahead and quit smoking now. Otherwise, the patient has daily sputum production and has done so for quite some time. 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 HOME MEDICATIONS: Lisinopril, hydrochlorothiazide, clonidine. ALLERGIES: CODEINE. SOCIAL HISTORY: The patient had a 25-year history of smoking two packs per day, occasional alcohol around once per week, and no illicit drug use. FAMILY HISTORY: Other family members with coronary artery disease, stroke and diabetes. Father had lung cancer. REVIEW OF SYSTEMS: All pertinent review of systems reviewed and is otherwise negative. PHYSICAL EXAMINATION: VITAL SIGNS: Afebrile, heart rate in the 60s, respiratory rate 16, oxygen saturation 96% on 2-3 L nasal cannula, currently blood pressure is between 120 and 160. GENERAL: The patient is alert and oriented, in no acute distress. HEENT: No JVD, neck is supple. PULMONARY: The patient has diffuse wheezing bilaterally which is mild to moderate. CARDIAC: Regular rate, no murmurs. Consultation Report [place] [id number] [place]. [address] NAME: AKILAH BHATT : 61 STATUS : ADM IN PAT#: [id number] AGE: 51 ADM/REG DATE : 08/27/16 MR#: [id number] REPORT SERV DATE: 08/28/16 DICTATED BY: NKECHI SALMON DATE: 08/28/16 REPORT STATUS : Draft TRANSCRIBED BY: JIMENEZ DATE: 08/28/16 ABDOMINAL EXAMINATION: Soft, nontender, nondistended. Small umbilical hernia. EXTREMITIES: Peripheral pulses noted in all extremities, no lower extremity edema. Extremity is warm to touch. NEUROLOGIC: The patient has no focal neurological deficits. LABORATORY EXAMINATION: Admission CBC shows no leukocytosis, evidence of chronic kidney disease, arterial blood gas shows a pH of 7.41, pCO2 of 45, and pO2 of 67. IMAGING: Outside hospital imaging shows pulmonary edema, no emphysema per record. I have not seen the images myself. ASSESSMENT AND PLAN: Mr. Bhatt is a 51-year-old gentleman with a presumed history of underlying chronic obstructive pulmonary disease. He probably also suffers from obesity- hypoventilation syndrome and obstructive sleep apnea. However, his arterial blood gas shows essentially normal pCO2. 1. Acute exacerbation of chronic obstructive pulmonary disease: The patient has no viral symptomatology, no infectious symptomatology; at this moment in time, we will go ahead and start Dulera, DuoNeb therapy, and prednisone. The patient is to quit smoking, we discussed this at length. 2. Cigarette-nicotine dependence: Discussed for greater than 7 minutes the need for tobacco cessation and came up with a plan. I believe this patient will follow through. 3. Hypoxia: The patient has underlying pulmonary vascular congestion with an elevated BNP, Cardiology is currently the primary, unclear whether this patient's hypoxia stems from chronic obstructive pulmonary disease, diastolic heart failure, or pulmonary edema versus pulmonary hypertension. At this moment in time, we will treat current disease processes and patient will need to have an outpatient followup appointment. 4. Obstructive sleep apnea: Followup by this patient's primary care physician. Thank you very much for allowing us to participate in your patient's care, we will continue to follow along with you, please call us with any further questions or concerns. HFQ/MODL Nkechi Salmon MD / [id number] CC: Michael Becerril III, M.D., [facility], [facility]
[2016-08-27] MEDS ORDERED: HYDROCHLOROT25 MG PO (14:48)
[2016-08-27] MEDS ORDERED: LISINOPRIL40 MG PO (14:48)
[2016-08-27] MEDS ORDERED: CAT1 PO (14:49)
[2016-08-27 16:07] LABS: BASOPHILS 0.1 %; BASOPHILS ABSOLUTE 0.01 10/3/uL (0.0-0.16); EOSINOPHILS 0 %; HEMATOCRIT 48.5 % (40.0-51.0); IMMATURE GRANULOCYTES 0.3 %; IMMATURE GRANULOCYTES ABSOLUTE 0.03 10/3/uL (0.0-0.11); LYMPHOCYTES 6.8 %; LYMPHOCYTES ABSOLUTE 0.67 10/3/uL (0.67-4.30); MANUAL DIFF NO %; MEAN CORPUS HGB CONC 35.1 g/dL (32.0-36.0); MEAN CORPUSCULAR HEMOGLOB 31.8 pg (26.0-34.0); MEAN CORPUSCULAR VOLUME 90.8 fL (80-100); MEAN PLATELET VOLUME 9.8 fL (9.2-13.0); MONOCYTES 1.3 %; MONOCYTES ABSOLUTE 0.13 10/3/uL (0.21-1.20); NEUTROPHILS 91.5 %; NEUTROPHILS ABSOLUTE 8.96 10/3/uL (2.02-8.40); PLATELET COUNT 204 10/3/uL (150-400); RBC DISTRIBUTION WIDTH 13.1 % (12.0-16.0); RED CELL COUNT 5.34 10/6/uL (4.7-6.1); WHITE BLOOD CELLS 9.8 10/3/uL (4.5-10.5)
[2016-08-27 16:15] LABS: PARTIAL THROMBO TIME 24.4 SEC (22.5-37.2); PROTIME (NOT ORD) 13.1 SEC (12.0-14.5)
[2016-08-28 06:22] LABS: BASOPHILS 0.1 %; BASOPHILS ABSOLUTE 0.02 10/3/uL (0.0-0.16); EOSINOPHILS 0.1 %; EOSINOPHILS ABSOLUTE 0.03 10/3/uL (0.0-0.53); HEMATOCRIT 46.7 % (40.0-51.0); HEMOGLOBIN 15.9 g/dL (13.6-17.8); IMMATURE GRANULOCYTES 0.5 %; IMMATURE GRANULOCYTES ABSOLUTE 0.11 10/3/uL (0.0-0.11); LYMPHOCYTES 6.7 %; LYMPHOCYTES ABSOLUTE 1.38 10/3/uL (0.67-4.30); MANUAL DIFF NO %; MEAN CORPUSCULAR HEMOGLOB 31.1 pg (26.0-34.0); MEAN CORPUSCULAR VOLUME 91.4 fL (80-100); MEAN PLATELET VOLUME 10.8 fL (9.2-13.0); MONOCYTES ABSOLUTE 1.44 10/3/uL (0.21-1.20); NEUTROPHILS 85.6 %; NEUTROPHILS ABSOLUTE 17.53 10/3/uL (2.02-8.40); PLATELET COUNT 212 10/3/uL (150-400); RBC DISTRIBUTION WIDTH 13.4 % (12.0-16.0); RED CELL COUNT 5.11 10/6/uL (4.7-6.1); WHITE BLOOD CELLS 20.5 10/3/uL (4.5-10.5)
[2016-08-28 06:36] LABS: ALBUMIN 3.4 G/DL (3.5-5.0); BUN (BLOOD UREA NITROGEN) 25 MG/DL (6-23); CALCIUM, SERUM 8.7 MG/DL (8.5-10.4); CHLORIDE, SERUM 107 MMOL/L (96-112); CO2 (CARBON DIOXIDE) 30 MMOL/L (24-34); CREATININE 1.41 MG/DL (0.70-1.30); GFR AFRICAN AMERICAN 65 ML/MIN (>=60); GFR NON AFRICAN AMERICAN 56 ML/MIN (>=60); GLUCOSE, SERUM 135 MG/DL (60-99); PHOSPHORUS, SERUM 3.4 MG/DL (2.5-4.5); POTASSIUM, SERUM 3.9 MMOL/L (3.5-5.3); SODIUM, SERUM 144 MMOL/L (135-148); TROPONIN I 0.03 NG/ML (<0.05)
[2016-08-28 15:06] LABS: ALLENS TEST Pos; BE (BASE EXCESS) 2.8 MEQ/L (0 +/- 2.5); CARBOXYHEMOGLOBIN 0.3 % (0-3); DEVICE NC; HEMOBLOGIN CONTENT 16.1 G/DL (14-18); INSTRUMENT SERIAL # 35151; METHEMOGLOBIN 0.6 % (0-3); O2 CONTENT 20.8 VOL% (18-24); PCO2 (CO2 TENSION) 45 MMHG (35-45); PO2 (O2 TENSION) 67 MMHG (79-93); SAMPLE Arterial; pH 7.41 (7.37-7.43)
[2016-08-29 01:42] LABS: BASOPHILS 0.3 %; BASOPHILS ABSOLUTE 0.04 10/3/uL (0.0-0.16); EOSINOPHILS 1.4 %; EOSINOPHILS ABSOLUTE 0.17 10/3/uL (0.0-0.53); HEMATOCRIT 45.4 % (40.0-51.0); HEMOGLOBIN 15.3 g/dL (13.6-17.8); IMMATURE GRANULOCYTES 0.4 %; IMMATURE GRANULOCYTES ABSOLUTE 0.05 10/3/uL (0.0-0.11); LYMPHOCYTES 20.8 %; LYMPHOCYTES ABSOLUTE 2.49 10/3/uL (0.67-4.30); MEAN CORPUS HGB CONC 33.7 g/dL (32.0-36.0); MEAN CORPUSCULAR VOLUME 91.9 fL (80-100); MEAN PLATELET VOLUME 10.8 fL (9.2-13.0); MONOCYTES 7.8 %; MONOCYTES ABSOLUTE 0.94 10/3/uL (0.21-1.20); NEUTROPHILS 69.3 %; NEUTROPHILS ABSOLUTE 8.29 10/3/uL (2.02-8.40); PLATELET COUNT 180 10/3/uL (150-400); RBC DISTRIBUTION WIDTH 13.7 % (12.0-16.0); RED CELL COUNT 4.94 10/6/uL (4.7-6.1)
[2016-08-29 01:46] LABS: MANUAL DIFF NO %
[2016-08-29 01:54] LABS: BUN (BLOOD UREA NITROGEN) 23 MG/DL (6-23); CALCIUM, SERUM 7.9 MG/DL (8.5-10.4); CHLORIDE, SERUM 111 MMOL/L (96-112); CO2 (CARBON DIOXIDE) 30 MMOL/L (24-34); GFR AFRICAN AMERICAN 66 ML/MIN (>=60); GFR NON AFRICAN AMERICAN 57 ML/MIN (>=60); GLUCOSE, SERUM 131 MG/DL (60-99); POTASSIUM, SERUM 3.3 MMOL/L (3.5-5.3); SODIUM, SERUM 149 MMOL/L (135-148)
[2016-08-30 05:21] LABS: ALLENS TEST Pos; BE (BASE EXCESS) 0.7 MEQ/L (0 +/- 2.5); CARBOXYHEMOGLOBIN 0.4 % (0-3); DEVICE cpap; HCO3 (ACTUAL BICARBONATE) 25.4 MEQ/L (23-27); HEMOBLOGIN CONTENT 15.7 G/DL (14-18); INSTRUMENT SERIAL # 35151; METHEMOGLOBIN 0.5 % (0-3); O2 CONTENT 20.4 VOL% (18-24); OPERATOR ID 18978; PCO2 (CO2 TENSION) 41 MMHG (35-45); PO2 (O2 TENSION) 69 MMHG (79-93); SAMPLE Arterial; pH 7.41 (7.37-7.43)
[2016-08-30 05:43] LABS: BASOPHILS 0.2 %; BASOPHILS ABSOLUTE 0.02 10/3/uL (0.0-0.16); EOSINOPHILS 1.2 %; EOSINOPHILS ABSOLUTE 0.14 10/3/uL (0.0-0.53); HEMOGLOBIN 15.2 g/dL (13.6-17.8); IMMATURE GRANULOCYTES 0.7 %; IMMATURE GRANULOCYTES ABSOLUTE 0.08 10/3/uL (0.0-0.11); LYMPHOCYTES 16.8 %; LYMPHOCYTES ABSOLUTE 1.95 10/3/uL (0.67-4.30); MEAN CORPUS HGB CONC 33.8 g/dL (32.0-36.0); MEAN CORPUSCULAR HEMOGLOB 31.3 pg (26.0-34.0); MEAN CORPUSCULAR VOLUME 92.6 fL (80-100); MEAN PLATELET VOLUME 10.9 fL (9.2-13.0); MONOCYTES 7.9 %; MONOCYTES ABSOLUTE 0.92 10/3/uL (0.21-1.20); NEUTROPHILS 73.2 %; NEUTROPHILS ABSOLUTE 8.48 10/3/uL (2.02-8.40); PLATELET COUNT 171 10/3/uL (150-400); RBC DISTRIBUTION WIDTH 13.6 % (12.0-16.0); RED CELL COUNT 4.86 10/6/uL (4.7-6.1); WHITE BLOOD CELLS 11.6 10/3/uL (4.5-10.5)
[2016-08-30 05:44] LABS: MANUAL DIFF NO %
[2016-08-30 05:52] LABS: INTERNATIONAL NORMAL RATI 1.1 UNITS (-); PROTIME (NOT ORD) 13.9 SEC (12.0-14.5)
[2016-08-30 06:00] LABS: CHLORIDE, SERUM 110 MMOL/L (96-112); CHOL/HDL RATIO(NOT ORDER) 3.3 (0-5); CHOLESTEROL 166 MG/DL (< 200); CREATININE 1.19 MG/DL (0.70-1.30); GFR AFRICAN AMERICAN 80 ML/MIN (>=60); GFR NON AFRICAN AMERICAN 69 ML/MIN (>=60); HDL CHOLESTEROL 50 MG/DL (> 39); LDL CHOLESTEROL 92 MG/DL (< 130); NON-HDL CHOLESTEROL 116 MG/DL (< 160); POTASSIUM, SERUM 3.3 MMOL/L (3.5-5.3); SODIUM, SERUM 146 MMOL/L (135-148); TRIGLYCERIDE 121 MG/DL (< 150)
[2016-08-30 06:01] LABS: BUN (BLOOD UREA NITROGEN) 18 MG/DL (6-23); CALCIUM, SERUM 8.3 MG/DL (8.5-10.4); CO2 (CARBON DIOXIDE) 25 MMOL/L (24-34); GLUCOSE, SERUM 168 MG/DL (60-99)
[2016-08-31 04:03] LABS: BASOPHILS 0.1 %; BASOPHILS ABSOLUTE 0.02 10/3/uL (0.0-0.16); EOSINOPHILS 0.8 %; EOSINOPHILS ABSOLUTE 0.12 10/3/uL (0.0-0.53); HEMOGLOBIN 15.8 g/dL (13.6-17.8); IMMATURE GRANULOCYTES 0.8 %; IMMATURE GRANULOCYTES ABSOLUTE 0.11 10/3/uL (0.0-0.11); LYMPHOCYTES 12.3 %; LYMPHOCYTES ABSOLUTE 1.74 10/3/uL (0.67-4.30); MEAN CORPUS HGB CONC 33.6 g/dL (32.0-36.0); MEAN CORPUSCULAR HEMOGLOB 31.2 pg (26.0-34.0); MEAN CORPUSCULAR VOLUME 92.9 fL (80-100); MEAN PLATELET VOLUME 10.4 fL (9.2-13.0); MONOCYTES 8.5 %; NEUTROPHILS 77.5 %; NEUTROPHILS ABSOLUTE 10.99 10/3/uL (2.02-8.40); PLATELET COUNT 190 10/3/uL (150-400); RBC DISTRIBUTION WIDTH 13.4 % (12.0-16.0); RED CELL COUNT 5.06 10/6/uL (4.7-6.1); WHITE BLOOD CELLS 14.2 10/3/uL (4.5-10.5)
[2016-08-31 04:06] LABS: MANUAL DIFF NO %
[2016-08-31 04:17] LABS: BUN (BLOOD UREA NITROGEN) 20 MG/DL (6-23); CALCIUM, SERUM 8.9 MG/DL (8.5-10.4); CHLORIDE, SERUM 105 MMOL/L (96-112); CREATININE 1.21 MG/DL (0.70-1.30); GFR AFRICAN AMERICAN 79 ML/MIN (>=60); GFR NON AFRICAN AMERICAN 68 ML/MIN (>=60); POTASSIUM, SERUM 3.5 MMOL/L (3.5-5.3); SODIUM, SERUM 142 MMOL/L (135-148)
[2016-08-31 04:18] LABS: CO2 (CARBON DIOXIDE) 32 MMOL/L (24-34); GLUCOSE, SERUM 130 MG/DL (60-99)
[2016-08-31 04:52] LABS: MAX AMP (ADP) 20 MM (35-68); TEG - ANGLE 52.2 DEG (53-72); TEG - COAGULATION INDEX -3.5 (-3 TO 3); TEG - MAXIMUM AMPLITUDE 59.9 MM (50-70); TEG PLAVIX/EFFIENT/TICLID(ADP) 81.1 % INHIB (< 40)
[2016-09-01 04:22] LABS: BASOPHILS 0.2 %; BASOPHILS ABSOLUTE 0.03 10/3/uL (0.0-0.16); EOSINOPHILS 1.3 %; EOSINOPHILS ABSOLUTE 0.17 10/3/uL (0.0-0.53); HEMATOCRIT 45.5 % (40.0-51.0); HEMOGLOBIN 15.2 g/dL (13.6-17.8); IMMATURE GRANULOCYTES 1.4 %; IMMATURE GRANULOCYTES ABSOLUTE 0.19 10/3/uL (0.0-0.11); LYMPHOCYTES 17.1 %; LYMPHOCYTES ABSOLUTE 2.29 10/3/uL (0.67-4.30); MEAN CORPUS HGB CONC 33.4 g/dL (32.0-36.0); MEAN CORPUSCULAR HEMOGLOB 30.9 pg (26.0-34.0); MEAN CORPUSCULAR VOLUME 92.5 fL (80-100); MEAN PLATELET VOLUME 10.9 fL (9.2-13.0); MONOCYTES 8.9 %; NEUTROPHILS 71.1 %; NEUTROPHILS ABSOLUTE 9.55 10/3/uL (2.02-8.40); PLATELET COUNT 187 10/3/uL (150-400); RBC DISTRIBUTION WIDTH 13.8 % (12.0-16.0); RED CELL COUNT 4.92 10/6/uL (4.7-6.1); WHITE BLOOD CELLS 13.4 10/3/uL (4.5-10.5)
[2016-09-01 04:23] LABS: MANUAL DIFF NO %
[2016-09-01 04:30] LABS: BUN (BLOOD UREA NITROGEN) 20 MG/DL (6-23); CALCIUM, SERUM 8.8 MG/DL (8.5-10.4); CHLORIDE, SERUM 105 MMOL/L (96-112); CO2 (CARBON DIOXIDE) 29 MMOL/L (24-34); CREATININE 1.23 MG/DL (0.70-1.30); GFR AFRICAN AMERICAN 77 ML/MIN (>=60); GFR NON AFRICAN AMERICAN 67 ML/MIN (>=60); GLUCOSE, SERUM 138 MG/DL (60-99); POTASSIUM, SERUM 3.6 MMOL/L (3.5-5.3); SODIUM, SERUM 143 MMOL/L (135-148)
[2016-09-01 04:44] LABS: PARTIAL THROMBO TIME > 150.0 SEC (22.5-37.2)
[2016-09-02 04:15] LABS: BASOPHILS 0.2 %; BASOPHILS ABSOLUTE 0.03 10/3/uL (0.0-0.16); EOSINOPHILS 1.2 %; EOSINOPHILS ABSOLUTE 0.17 10/3/uL (0.0-0.53); HEMATOCRIT 46.3 % (40.0-51.0); HEMOGLOBIN 15.8 g/dL (13.6-17.8); IMMATURE GRANULOCYTES 1.7 %; IMMATURE GRANULOCYTES ABSOLUTE 0.24 10/3/uL (0.0-0.11); LYMPHOCYTES 16.7 %; LYMPHOCYTES ABSOLUTE 2.35 10/3/uL (0.67-4.30); MEAN CORPUS HGB CONC 34.1 g/dL (32.0-36.0); MEAN CORPUSCULAR HEMOGLOB 31.3 pg (26.0-34.0); MEAN CORPUSCULAR VOLUME 91.9 fL (80-100); MEAN PLATELET VOLUME 10.9 fL (9.2-13.0); MONOCYTES 8.8 %; MONOCYTES ABSOLUTE 1.24 10/3/uL (0.21-1.20); NEUTROPHILS 71.4 %; NEUTROPHILS ABSOLUTE 10.07 10/3/uL (2.02-8.40); PLATELET COUNT 186 10/3/uL (150-400); RBC DISTRIBUTION WIDTH 13.9 % (12.0-16.0); RED CELL COUNT 5.04 10/6/uL (4.7-6.1); WHITE BLOOD CELLS 14.1 10/3/uL (4.5-10.5)
[2016-09-02 04:18] LABS: MANUAL DIFF NO %
[2016-09-02 04:29] LABS: BUN (BLOOD UREA NITROGEN) 19 MG/DL (6-23); CALCIUM, SERUM 8.8 MG/DL (8.5-10.4); CHLORIDE, SERUM 107 MMOL/L (96-112); CO2 (CARBON DIOXIDE) 30 MMOL/L (24-34); CREATININE 1.21 MG/DL (0.70-1.30); GFR AFRICAN AMERICAN 79 ML/MIN (>=60); GFR NON AFRICAN AMERICAN 68 ML/MIN (>=60); GLUCOSE, SERUM 164 MG/DL (60-99); POTASSIUM, SERUM 3.6 MMOL/L (3.5-5.3); SODIUM, SERUM 145 MMOL/L (135-148)
[2016-09-02 05:34] LABS: TEG PLAVIX/EFFIENT/TICLID(ADP) 100 % INHIB (< 40)
[2016-09-02 05:37] LABS: MAX AMP (ADP) 12.5 MM (35-68)
[2016-09-02 06:08] LABS: TEG - RATE 6.8 MIN (5.0-10.0)
[2016-09-02 06:09] LABS: TEG - ANGLE 66.5 DEG (53-72); TEG - MAXIMUM AMPLITUDE 64.2 MM (50-70)
[2016-09-03 00:58] LABS: BASOPHILS 0.5 %; BASOPHILS ABSOLUTE 0.05 10/3/uL (0.0-0.16); EOSINOPHILS 4.3 %; EOSINOPHILS ABSOLUTE 0.45 10/3/uL (0.0-0.53); HEMOGLOBIN 15.9 g/dL (13.6-17.8); IMMATURE GRANULOCYTES 3.7 %; IMMATURE GRANULOCYTES ABSOLUTE 0.38 10/3/uL (0.0-0.11); LYMPHOCYTES 20.5 %; LYMPHOCYTES ABSOLUTE 2.13 10/3/uL (0.67-4.30); MANUAL DIFF NO %; MEAN CORPUS HGB CONC 33.8 g/dL (32.0-36.0); MEAN CORPUSCULAR HEMOGLOB 31.2 pg (26.0-34.0); MEAN CORPUSCULAR VOLUME 92.3 fL (80-100); MEAN PLATELET VOLUME 10.9 fL (9.2-13.0); MONOCYTES 10.1 %; MONOCYTES ABSOLUTE 1.05 10/3/uL (0.21-1.20); NEUTROPHILS 60.9 %; NEUTROPHILS ABSOLUTE 6.34 10/3/uL (2.02-8.40); PLATELET COUNT 200 10/3/uL (150-400); RBC DISTRIBUTION WIDTH 13.9 % (12.0-16.0); RED CELL COUNT 5.09 10/6/uL (4.7-6.1); WHITE BLOOD CELLS 10.4 10/3/uL (4.5-10.5)
[2016-09-03 01:12] LABS: BUN (BLOOD UREA NITROGEN) 18 MG/DL (6-23); CALCIUM, SERUM 8.9 MG/DL (8.5-10.4); CHLORIDE, SERUM 108 MMOL/L (96-112); CO2 (CARBON DIOXIDE) 30 MMOL/L (24-34); CREATININE 1.18 MG/DL (0.70-1.30); GFR AFRICAN AMERICAN 81 ML/MIN (>=60); GFR NON AFRICAN AMERICAN 70 ML/MIN (>=60); GLUCOSE, SERUM 141 MG/DL (60-99); POTASSIUM, SERUM 3.7 MMOL/L (3.5-5.3); SODIUM, SERUM 144 MMOL/L (135-148)
[2016-09-04 01:53] LABS: BASOPHILS 0.4 %; BASOPHILS ABSOLUTE 0.05 10/3/uL (0.0-0.16); EOSINOPHILS 4.9 %; EOSINOPHILS ABSOLUTE 0.56 10/3/uL (0.0-0.53); HEMATOCRIT 48.9 % (40.0-51.0); HEMOGLOBIN 16.6 g/dL (13.6-17.8); IMMATURE GRANULOCYTES 4.3 %; IMMATURE GRANULOCYTES ABSOLUTE 0.49 10/3/uL (0.0-0.11); LYMPHOCYTES 17.1 %; LYMPHOCYTES ABSOLUTE 1.96 10/3/uL (0.67-4.30); MEAN CORPUS HGB CONC 33.9 g/dL (32.0-36.0); MEAN CORPUSCULAR HEMOGLOB 31.6 pg (26.0-34.0); MEAN PLATELET VOLUME 10.6 fL (9.2-13.0); MONOCYTES 9.8 %; MONOCYTES ABSOLUTE 1.12 10/3/uL (0.21-1.20); NEUTROPHILS 63.5 %; NEUTROPHILS ABSOLUTE 7.25 10/3/uL (2.02-8.40); PLATELET COUNT 197 10/3/uL (150-400); RBC DISTRIBUTION WIDTH 13.5 % (12.0-16.0); RED CELL COUNT 5.26 10/6/uL (4.7-6.1); WHITE BLOOD CELLS 11.4 10/3/uL (4.5-10.5)
[2016-09-04 01:54] LABS: MANUAL DIFF NO %
[2016-09-04 02:04] LABS: BUN (BLOOD UREA NITROGEN) 17 MG/DL (6-23); CALCIUM, SERUM 8.9 MG/DL (8.5-10.4); CHLORIDE, SERUM 105 MMOL/L (96-112); CO2 (CARBON DIOXIDE) 29 MMOL/L (24-34); GFR AFRICAN AMERICAN 72 ML/MIN (>=60); GFR NON AFRICAN AMERICAN 62 ML/MIN (>=60); GLUCOSE, SERUM 128 MG/DL (60-99); SODIUM, SERUM 142 MMOL/L (135-148)
[2016-09-05 07:05] LABS: BASOPHILS 0.3 %; BASOPHILS ABSOLUTE 0.03 10/3/uL (0.0-0.16); EOSINOPHILS 4.2 %; EOSINOPHILS ABSOLUTE 0.42 10/3/uL (0.0-0.53); HEMATOCRIT 47.2 % (40.0-51.0); HEMOGLOBIN 15.7 g/dL (13.6-17.8); IMMATURE GRANULOCYTES 3.7 %; IMMATURE GRANULOCYTES ABSOLUTE 0.37 10/3/uL (0.0-0.11); LYMPHOCYTES 16.6 %; LYMPHOCYTES ABSOLUTE 1.65 10/3/uL (0.67-4.30); MEAN CORPUS HGB CONC 33.3 g/dL (32.0-36.0); MEAN CORPUSCULAR HEMOGLOB 31.3 pg (26.0-34.0); MEAN PLATELET VOLUME 10.4 fL (9.2-13.0); MONOCYTES ABSOLUTE 0.99 10/3/uL (0.21-1.20); NEUTROPHILS 65.2 %; NEUTROPHILS ABSOLUTE 6.45 10/3/uL (2.02-8.40); PLATELET COUNT 191 10/3/uL (150-400); RBC DISTRIBUTION WIDTH 13.7 % (12.0-16.0); RED CELL COUNT 5.02 10/6/uL (4.7-6.1); WHITE BLOOD CELLS 9.9 10/3/uL (4.5-10.5)
[2016-09-05 07:07] LABS: MANUAL DIFF NO %
[2016-09-05 07:17] LABS: BUN (BLOOD UREA NITROGEN) 17 MG/DL (6-23); CALCIUM, SERUM 8.8 MG/DL (8.5-10.4); CHLORIDE, SERUM 107 MMOL/L (96-112); CO2 (CARBON DIOXIDE) 30 MMOL/L (24-34); CREATININE 1.21 MG/DL (0.70-1.30); GFR AFRICAN AMERICAN 79 ML/MIN (>=60); GFR NON AFRICAN AMERICAN 68 ML/MIN (>=60); GLUCOSE, SERUM 130 MG/DL (60-99); POTASSIUM, SERUM 4.4 MMOL/L (3.5-5.3); SODIUM, SERUM 142 MMOL/L (135-148)
[2016-09-05 18:38] LABS: ALDOSTERONE/RENIN RAT <0.3 ratio (0.1-3.7)
[2016-09-05 21:59] LABS: ASCORBIC ACID (UR NOT ORDER) NEG (NEG); BILIRUBIN, URINE NEGATIVE (NEG); KETONE, URINE NEGATIVE (NEG); LEUKOCYTE ESTERASE(NOT OR NEG (NEG); WBC (NOT ORDERED) (RFLEX) < 1 (0-5)
[2016-09-06 05:20] LABS: BASOPHILS 0.3 %; BASOPHILS ABSOLUTE 0.03 10/3/uL (0.0-0.16); EOSINOPHILS 4.1 %; EOSINOPHILS ABSOLUTE 0.39 10/3/uL (0.0-0.53); HEMATOCRIT 49.1 % (40.0-51.0); HEMOGLOBIN 16.3 g/dL (13.6-17.8); IMMATURE GRANULOCYTES 1.9 %; IMMATURE GRANULOCYTES ABSOLUTE 0.18 10/3/uL (0.0-0.11); LYMPHOCYTES 18.3 %; LYMPHOCYTES ABSOLUTE 1.75 10/3/uL (0.67-4.30); MEAN CORPUS HGB CONC 33.2 g/dL (32.0-36.0); MEAN CORPUSCULAR HEMOGLOB 31.4 pg (26.0-34.0); MEAN CORPUSCULAR VOLUME 94.6 fL (80-100); MEAN PLATELET VOLUME 10.5 fL (9.2-13.0); MONOCYTES 11.1 %; MONOCYTES ABSOLUTE 1.06 10/3/uL (0.21-1.20); NEUTROPHILS 64.3 %; NEUTROPHILS ABSOLUTE 6.17 10/3/uL (2.02-8.40); PLATELET COUNT 195 10/3/uL (150-400); RBC DISTRIBUTION WIDTH 13.5 % (12.0-16.0); RED CELL COUNT 5.19 10/6/uL (4.7-6.1); WHITE BLOOD CELLS 9.6 10/3/uL (4.5-10.5)
[2016-09-06 05:25] LABS: MANUAL DIFF NO %
[2016-09-06 05:28] LABS: PROTIME (NOT ORD) 12.8 SEC (12.0-14.5)
[2016-09-06 05:30] LABS: PARTIAL THROMBO TIME 91.2 SEC (22.5-37.2)
[2016-09-06 05:45] LABS: ALBUMIN 3.3 G/DL (3.5-5.0); ALKALINE PHOSPHATASE 80 U/L (45-117); BUN (BLOOD UREA NITROGEN) 19 MG/DL (6-23); CALCIUM, SERUM 8.9 MG/DL (8.5-10.4); CHLORIDE, SERUM 109 MMOL/L (96-112); GFR AFRICAN AMERICAN 80 ML/MIN (>=60); GFR NON AFRICAN AMERICAN 69 ML/MIN (>=60); GLOBULIN 3.4 G/DL (2.5-4.1); GLUCOSE, SERUM 131 MG/DL (60-99); IRON BINDING CAPACITY 313 MCG/DL (250-450); POTASSIUM, SERUM 4.4 MMOL/L (3.5-5.3); SGPT(ALT) 59 U/L (5-65); SODIUM, SERUM 143 MMOL/L (135-148); TOTAL BILIRUBIN 0.5 MG/DL (0-1.2); TOTAL PROTEIN 6.7 G/DL (6.0-8.5)
[2016-09-06 05:47] LABS: CO2 (CARBON DIOXIDE) 23 MMOL/L (24-34)
[2016-09-06 05:48] LABS: % IRON SAT 31 % (20-50); IRON, SERUM 96 MCG/DL (35-150); PHOSPHORUS, SERUM 4.9 MG/DL (2.5-4.5); SGOT(AST) 23 U/L (5-40)
[2016-09-06 20:35] LABS: BE (BASE EXCESS) -4.5 MEQ/L (0 +/- 2.5); CARBOXYHEMOGLOBIN 0.8 % (0-3); HCO3 (ACTUAL BICARBONATE) 21.8 MEQ/L (23-27); HEMOBLOGIN CONTENT 15.9 G/DL (14-18); INSTRUMENT SERIAL # 11843; METHEMOGLOBIN 0.4 % (0-3); MODE SIMV; O2 CONTENT 20.6 VOL% (18-24); OPERATOR ID 16469; PCO2 (CO2 TENSION) 44 MMHG (35-45); PO2 (O2 TENSION) 75 MMHG (79-93); SAMPLE Arterial; TIDAL VOLUME 800 ML; pH 7.31 (7.37-7.43)
[2016-09-06 20:50] LABS: HEMATOCRIT 44.8 % (40.0-51.0); HEMOGLOBIN 14.8 g/dL (13.6-17.8); PLATELET COUNT 139 10/3/uL (150-400)
[2016-09-06 20:57] LABS: INTERNATIONAL NORMAL RATI 1.2 UNITS (-); PARTIAL THROMBO TIME 31.9 SEC (22.5-37.2)
[2016-09-06 21:05] LABS: BUN (BLOOD UREA NITROGEN) 22 MG/DL (6-23); CALCIUM, SERUM 8.3 MG/DL (8.5-10.4); CHLORIDE, SERUM 111 MMOL/L (96-112); CO2 (CARBON DIOXIDE) 24 MMOL/L (24-34); GFR AFRICAN AMERICAN 47 ML/MIN (>=60); GFR NON AFRICAN AMERICAN 40 ML/MIN (>=60); GLUCOSE, SERUM 139 MG/DL (60-99); POTASSIUM, SERUM 4.4 MMOL/L (3.5-5.3); SODIUM, SERUM 146 MMOL/L (135-148)
[2016-09-06 21:09] LABS: CREATININE 1.86 MG/DL (0.70-1.30)
[2016-09-06 21:50] LABS: BE (BASE EXCESS) -5.4 MEQ/L (0 +/- 2.5); CARBOXYHEMOGLOBIN 0.4 % (0-3); HCO3 (ACTUAL BICARBONATE) 20.6 MEQ/L (23-27); HEMOBLOGIN CONTENT 17.3 G/DL (14-18); INSTRUMENT SERIAL # 11843; METHEMOGLOBIN 0.4 % (0-3); MODE SIMV; OPERATOR ID 16469; PCO2 (CO2 TENSION) 42 MMHG (35-45); PO2 (O2 TENSION) 86 MMHG (79-93); SAMPLE Arterial; TIDAL VOLUME 900 ML; pH 7.31 (7.37-7.43)
[2016-09-07 03:09] LABS: BE (BASE EXCESS) -3.1 MEQ/L (0 +/- 2.5); CARBOXYHEMOGLOBIN 0.3 % (0-3); HCO3 (ACTUAL BICARBONATE) 21.9 MEQ/L (23-27); INSTRUMENT SERIAL # 11843; METHEMOGLOBIN 0.3 % (0-3); MODE SIMV; O2 CONTENT 22.2 VOL% (18-24); OPERATOR ID 16469; PCO2 (CO2 TENSION) 39 MMHG (35-45); PO2 (O2 TENSION) 72 MMHG (79-93); SAMPLE Arterial; TIDAL VOLUME 900 ML; pH 7.37 (7.37-7.43)
[2016-09-07 03:34] LABS: HEMATOCRIT 47.6 % (40.0-51.0); HEMOGLOBIN 16.2 g/dL (13.6-17.8); MEAN CORPUSCULAR HEMOGLOB 31.7 pg (26.0-34.0); MEAN CORPUSCULAR VOLUME 93.2 fL (80-100); MEAN PLATELET VOLUME 10.5 fL (9.2-13.0); PLATELET COUNT 149 10/3/uL (150-400); RBC DISTRIBUTION WIDTH 13.2 % (12.0-16.0); RED CELL COUNT 5.11 10/6/uL (4.7-6.1)
[2016-09-07 03:35] LABS: WHITE BLOOD CELLS 20.5 10/3/uL (4.5-10.5)
[2016-09-07 03:36] LABS: MANUAL DIFF YES %
[2016-09-07 03:44] LABS: PROTIME (NOT ORD) 13.5 SEC (12.0-14.5)
[2016-09-07 03:50] LABS: CALCIUM, SERUM 8.6 MG/DL (8.5-10.4); CHLORIDE, SERUM 113 MMOL/L (96-112); CO2 (CARBON DIOXIDE) 24 MMOL/L (24-34); CREATININE 1.65 MG/DL (0.70-1.30); GFR AFRICAN AMERICAN 54 ML/MIN (>=60); GFR NON AFRICAN AMERICAN 47 ML/MIN (>=60); GLUCOSE, SERUM 124 MG/DL (60-99); POTASSIUM, SERUM 5.1 MMOL/L (3.5-5.3); SODIUM, SERUM 146 MMOL/L (135-148)
[2016-09-07 03:51] LABS: BUN (BLOOD UREA NITROGEN) 26 MG/DL (6-23)
[2016-09-07 03:54] LABS: BAND NEUTROPHILS 5 %; LYMPHOCYTES 2 %; LYMPHOCYTES ABSOLUTE (CALC) 0.41 10/3/uL (0.67-4.30); MONOCYTES 2 %; MONOCYTES ABSOLUTE (CALC) 0.41 10/3/uL (0.21-1.20); NEUTROPHILS ABSOLUTE (CALC) 19.68 10/3/uL (2.02-8.40); PLATELET ESTIMATE SLT DEC (ADEQUATE); SEGMENTED NEUTROPHIL (0) 91 %; TOTAL NUCLEATED CELLS 100
[2016-09-07 03:55] LABS: RBC MORPHOLOGY NORM (NORMAL)
[2016-09-07 05:09] LABS: BE (BASE EXCESS) -4.9 MEQ/L (0 +/- 2.5); CARBOXYHEMOGLOBIN 0.3 % (0-3); DEVICE HFNC; HCO3 (ACTUAL BICARBONATE) 19.8 MEQ/L (23-27); HEMOBLOGIN CONTENT 17.1 G/DL (14-18); INSTRUMENT SERIAL # 11843; METHEMOGLOBIN 0.3 % (0-3); O2 CONTENT 21.5 VOL% (18-24); OPERATOR ID 16469; PCO2 (CO2 TENSION) 36 MMHG (35-45); PO2 (O2 TENSION) 62 MMHG (79-93); SAMPLE Arterial; pH 7.36 (7.37-7.43)
[2016-09-07 15:56] LABS: HEMATOCRIT 43.4 % (40.0-51.0); HEMOGLOBIN 14.8 g/dL (13.6-17.8)
[2016-09-08 03:54] LABS: MEAN CORPUS HGB CONC 33.3 g/dL (32.0-36.0); MEAN CORPUSCULAR HEMOGLOB 31.3 pg (26.0-34.0); MEAN CORPUSCULAR VOLUME 93.8 fL (80-100); MEAN PLATELET VOLUME 10.6 fL (9.2-13.0); PLATELET COUNT 161 10/3/uL (150-400); RBC DISTRIBUTION WIDTH 13.8 % (12.0-16.0); RED CELL COUNT 4.48 10/6/uL (4.7-6.1); WHITE BLOOD CELLS 26.1 10/3/uL (4.5-10.5)
[2016-09-08 03:55] LABS: MANUAL DIFF YES %
[2016-09-08 04:00] LABS: BUN (BLOOD UREA NITROGEN) 29 MG/DL (6-23); CALCIUM, SERUM 8.7 MG/DL (8.5-10.4); CHLORIDE, SERUM 106 MMOL/L (96-112); CREATININE 1.49 MG/DL (0.70-1.30); GFR AFRICAN AMERICAN 61 ML/MIN (>=60); GFR NON AFRICAN AMERICAN 53 ML/MIN (>=60); POTASSIUM, SERUM 5.5 MMOL/L (3.5-5.3); SODIUM, SERUM 141 MMOL/L (135-148)
[2016-09-08 04:01] LABS: CO2 (CARBON DIOXIDE) 29 MMOL/L (24-34); GLUCOSE, SERUM 92 MG/DL (60-99)
[2016-09-08 04:13] LABS: BAND NEUTROPHILS 11 %; LYMPHOCYTES 4 %; LYMPHOCYTES ABSOLUTE (CALC) 1.04 10/3/uL (0.67-4.30); MONOCYTES 8 %; MONOCYTES ABSOLUTE (CALC) 2.09 10/3/uL (0.21-1.20); NEUTROPHILS ABSOLUTE (CALC) 22.97 10/3/uL (2.02-8.40); PLATELET ESTIMATE ADQ (ADEQUATE); RBC MORPHOLOGY NORM (NORMAL); SEGMENTED NEUTROPHIL (0) 77 %; TOTAL NUCLEATED CELLS 100
[2016-09-09 04:58] LABS: BASOPHILS 0.1 %; BASOPHILS ABSOLUTE 0.01 10/3/uL (0.0-0.16); EOSINOPHILS 0.1 %; EOSINOPHILS ABSOLUTE 0.01 10/3/uL (0.0-0.53); HEMATOCRIT 43.2 % (40.0-51.0); HEMOGLOBIN 14.6 g/dL (13.6-17.8); IMMATURE GRANULOCYTES 0.6 %; LYMPHOCYTES ABSOLUTE 1.16 10/3/uL (0.67-4.30); MEAN CORPUS HGB CONC 33.8 g/dL (32.0-36.0); MEAN CORPUSCULAR HEMOGLOB 31.3 pg (26.0-34.0); MEAN CORPUSCULAR VOLUME 92.7 fL (80-100); MEAN PLATELET VOLUME 10.4 fL (9.2-13.0); MONOCYTES 12.6 %; MONOCYTES ABSOLUTE 2.07 10/3/uL (0.21-1.20); NEUTROPHILS 79.6 %; NEUTROPHILS ABSOLUTE 13.14 10/3/uL (2.02-8.40); PLATELET COUNT 162 10/3/uL (150-400); RBC DISTRIBUTION WIDTH 13.6 % (12.0-16.0); RED CELL COUNT 4.66 10/6/uL (4.7-6.1); WHITE BLOOD CELLS 16.5 10/3/uL (4.5-10.5)
[2016-09-09 05:03] LABS: MANUAL DIFF NO %
[2016-09-09 05:11] LABS: CALCIUM, SERUM 8.8 MG/DL (8.5-10.4); CHLORIDE, SERUM 100 MMOL/L (96-112); CO2 (CARBON DIOXIDE) 29 MMOL/L (24-34); CREATININE 1.28 MG/DL (0.70-1.30); GFR AFRICAN AMERICAN 74 ML/MIN (>=60); GFR NON AFRICAN AMERICAN 63 ML/MIN (>=60); SODIUM, SERUM 137 MMOL/L (135-148)
[2016-09-09 05:16] LABS: BUN (BLOOD UREA NITROGEN) 24 MG/DL (6-23); GLUCOSE, SERUM 120 MG/DL (60-99); POTASSIUM, SERUM 4.3 MMOL/L (3.5-5.3)
[2016-09-10 05:07] LABS: BASOPHILS 0.1 %; BASOPHILS ABSOLUTE 0.02 10/3/uL (0.0-0.16); EOSINOPHILS 0.6 %; EOSINOPHILS ABSOLUTE 0.09 10/3/uL (0.0-0.53); HEMATOCRIT 40.1 % (40.0-51.0); HEMOGLOBIN 13.3 g/dL (13.6-17.8); IMMATURE GRANULOCYTES ABSOLUTE 0.15 10/3/uL (0.0-0.11); LYMPHOCYTES 11.1 %; LYMPHOCYTES ABSOLUTE 1.67 10/3/uL (0.67-4.30); MEAN CORPUS HGB CONC 33.2 g/dL (32.0-36.0); MEAN CORPUSCULAR HEMOGLOB 30.9 pg (26.0-34.0); MEAN CORPUSCULAR VOLUME 93.3 fL (80-100); MEAN PLATELET VOLUME 10.6 fL (9.2-13.0); MONOCYTES 14.3 %; MONOCYTES ABSOLUTE 2.14 10/3/uL (0.21-1.20); NEUTROPHILS 72.9 %; NEUTROPHILS ABSOLUTE 10.94 10/3/uL (2.02-8.40); PLATELET COUNT 170 10/3/uL (150-400); RBC DISTRIBUTION WIDTH 13.6 % (12.0-16.0)
[2016-09-10 05:15] LABS: MANUAL DIFF NO %
[2016-09-10 05:25] LABS: BUN (BLOOD UREA NITROGEN) 25 MG/DL (6-23); CHLORIDE, SERUM 100 MMOL/L (96-112); CO2 (CARBON DIOXIDE) 28 MMOL/L (24-34); CREATININE 1.42 MG/DL (0.70-1.30); GFR AFRICAN AMERICAN 65 ML/MIN (>=60); GFR NON AFRICAN AMERICAN 56 ML/MIN (>=60); GLUCOSE, SERUM 116 MG/DL (60-99); POTASSIUM, SERUM 4.1 MMOL/L (3.5-5.3); SODIUM, SERUM 138 MMOL/L (135-148)
[2016-09-10 05:27] LABS: CALCIUM, SERUM 8.7 MG/DL (8.5-10.4)
[2016-09-10] MEDS ORDERED: TOPXL100 PO (12:28)
[2016-09-10] MEDS ORDERED: NITROSTAT0.4 MG SL (12:29)
[2016-09-10] MEDS ORDERED: KDUR20 PO (12:29)
[2016-09-10] MEDS ORDERED: BUM1 PO (12:30)
[2016-09-10] MEDS ORDERED: HABIT21 TOP (12:30)
[2016-09-10] MEDS ORDERED: PRIN10 PO (12:31)
[2016-09-10] MEDS ORDERED: ASAB PO (12:32)
[2016-09-10] MEDS ORDERED: PLAVIX PO (12:32)
[2016-09-10] MEDS ORDERED: LIPITOR40 PO (12:32)
[2016-09-10] MEDS ORDERED: NEUR300 PO (12:33)
[2016-09-10] MEDS ORDERED: PERCOCET 10/3251 TAB PO (12:33)
[2016-09-10] MEDS ORDERED: DULERA 200 MCG/13 GM INH (12:34)
[2016-09-18 09:26] LABS: ALDOSTERONE <3.0
== END 2016-09-10 16:16 | disposition home or self-care (01) | DRG 233 ==
LOC: 5NO 13:38 → SDC/OF 09-06 11:52 → CVICU 09-06 17:42 → 5NO 09-08 11:19
PROVIDERS: Internal Medicine Cardiovascular Disease; Nurse Practitioner Family; Thoracic Surgery (Cardiothoracic Vascular Surgery)
PROC: B2151ZZ Fluoroscopy of Left Heart using Low Osmolar Contrast (ICD-10-PCS; 2016-08-30)
PROC: B2111ZZ Fluoroscopy of Multiple Coronary Arteries using Low Osmolar Contrast (ICD-10-PCS; 2016-08-30)
PROC: 06BQ0ZZ Excision of Left Saphenous Vein, Open Approach (ICD-10-PCS; 2016-09-06)
PROC: 06BP0ZZ Excision of Right Saphenous Vein, Open Approach (ICD-10-PCS; 2016-09-06)
PROC: 5A1221Z Performance of Cardiac Output, Continuous (ICD-10-PCS; 2016-09-06)
PROC: B246ZZ4 Ultrasonography of Right and Left Heart, Transesophageal (ICD-10-PCS; 2016-09-06)
PROC: 021309W Bypass Coronary Artery, Four or More Arteries from Aorta with Autologous Venous Tissue, Open Approach (ICD-10-PCS; principal; 2016-09-06 16:45)
PROC: 4A023N7 Measurement of Cardiac Sampling and Pressure, Left Heart, Percutaneous Approach (ICD-10-PCS; 2016-09-06 16:45)
PROC: 021 Heart and Great Vessels, Bypass (ICD-10-PCS; 2016-09-06 16:45)
DX: I21.4 Non-ST elevation (NSTEMI) myocardial infarction (principal); I50.41 Acute combined systolic (congestive) and diastolic (congestive) heart failure; Z68.42 Body mass index [BMI] 45.0-49.9, adult; N18.3 Chronic kidney disease, stage 3 (moderate); J44.1 Chronic obstructive pulmonary disease with (acute) exacerbation; I13.0 Hypertensive heart and chronic kidney disease with heart failure and stage 1 through stage 4 chronic kidney disease, or unspecified chronic kidney disease; I25.110 Atherosclerotic heart disease of native coronary artery with unstable angina pectoris; I45.10 Unspecified right bundle-branch block; E66.01 Morbid (severe) obesity due to excess calories; F17.210 Nicotine dependence, cigarettes, uncomplicated; G47.33 Obstructive sleep apnea (adult) (pediatric); F32.9 Major depressive disorder, single episode, unspecified; E78.5 Hyperlipidemia, unspecified; I35.0 Nonrheumatic aortic (valve) stenosis; Z87.442 Personal history of urinary calculi; Z98.890 Other specified postprocedural states; Z88.5 Allergy status to narcotic agent; Z79.02 Long term (current) use of antithrombotics/antiplatelets; Z82.49 Family history of ischemic heart disease and other diseases of the circulatory system; Z82.3 Family history of stroke; Z83.3 Family history of diabetes mellitus; Z80.8 Family history of malignant neoplasm of other organs or systems; Z82.61 Family history of arthritis; D35.02 Benign neoplasm of left adrenal gland; D35.01 Benign neoplasm of right adrenal gland
CPT/HCPCS: 36415; 36600; 71010; 71020; 71275; 80048; 80053; 80061; 80069; 81001; 82088; 82330; 82803; 82805; 82947; 82962; 83036; 83540; 83550; 83735; 83880; 84100; 84132; 84244; 84295; 84484; 85014; 85018; 85025; 85049; 85347; 85384; 85576; 85576-59; 85610; 85730; 86850; 86900; 86901; 86920; 87641; 93005; 93312; 93320; 93325; 93458; 93880; 94002; 94010; 94640; 94660; 94770; A9270-GY; C1713; C1760; C1769; C1894; C8929; G0365; J0690; J1644; J1956; J2150; J2250; J2370; J2440; J2720; J2795; J2930; J3010; J3475; J3480; P9045; P9047; Q9957; Q9967